=== PATIENT | female | born 2000 | race Caucasian/White ===

== ENCOUNTER 2020-11-04 18:23 | Emergency (ER) | payer SELFPAY ==
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
[2020-11-04] MEDS ORDERED: Lactated Ringers 1,000 ML IV ONE (19:37)
[2020-11-04] MEDS ORDERED: HYDROmorphone 0.5 MG/0.5 ML Syringe IVPUSH ONE (20:28)
[2020-11-04] MEDS ORDERED: Iopamidol 612 MG/ML 100 ML Bottle IVPUSH ONE (21:39)
[2020-11-04] MEDS ORDERED: Sodium Chloride 0.9% 100 ML IV SCH (21:45)
--- NOTE | 2020-11-05 08:27 | CT ---
CT abdomen and pelvis Technique: Multiple axial sections were obtained from above the dome of the diaphragm inferiorly through the pubic symphysis. Intravenous contrast was utilized. No oral contrast has been given. Delayed images were obtained through the abdomen and pelvis. Reconstructed coronal and sagittal images were obtained. Comparison: No prior CT abdomen or pelvis exam is available. Findings: Visualized lung bases show nothing acute. Liver contains no focal parenchymal abnormality. Spleen appears normal in size. Adrenal glands show no nodule. No discrete pancreatic abnormality is appreciated. Gallbladder contains no calcified gallstones. Kidneys show symmetric contrast enhancement. No hydronephrosis or mass is appreciated. Aorta shows no aneurysm. No retroperitoneal adenopathy or mesenteric abnormalities are appreciated. Appendix is felt to be visualized and appears to be normal. Bowel gas pattern appears within normal limits. No pelvic mass or adenopathy is seen. Delayed images show contrast excretion into both ureters and within the bladder. No free fluid or inflammatory change is appreciated. Small amount of air is noted within the bladder. Bone window settings were reviewed. 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 No acute osseous abnormality is otherwise appreciated. Impression: 1. 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 2. Small amount of air within the bladder. Please correlate if patient has been recently instrumented. 3. Nothing acute is otherwise seen on CT study of the abdomen and pelvis. Diagnostic code #2 I agree with preliminary report from [facility], finalized on 11/04/20, 10:52 PM [facility]
--- NOTE | 2020-11-05 08:45 | CR ---
Left tibia and fibula: AP and lateral views of the left tibia and fibula were obtained. Comparison: No previous study is available. No fracture or other bony abnormality is appreciated. Small lucent line is identified within the cortex of the medial talus which is most likely artifact. Impression: 1. Nothing acute is appreciated on 2 view left tibia and fibula study. Diagnostic code #2
--- NOTE | 2020-11-05 09:44 | CR ---
Left femur: AP and lateral views of the left femur were obtained. Comparison: No prior study. No fracture or other bony abnormality is appreciated. No soft tissue abnormality is appreciated. Impression: 1. Nothing acute is appreciated on two-view left femur study. Diagnostic code #1
--- NOTE | 2020-11-05 09:56 | CR ---
Chest: Frontal view of the chest was obtained. Comparison: No previous study is available. Heart size and mediastinum are normal. Lungs are clear with no acute parenchymal change. Bony structures are unremarkable. Contrast is seen within the collecting system from recent CT exam. Impression: 1. Nothing acute is seen on frontal chest x-ray. Diagnostic code #1
== END 2020-11-04 23:00 | disposition home or self-care (01) ==
LOC: JD.ED 18:23
DX: S87.82XA Crushing injury of left lower leg, initial encounter (principal); Z72.0 Tobacco use; W23.0XXA Caught, crushed, jammed, or pinched between moving objects, initial encounter
CPT/HCPCS: 36415; 71045; 73552; 73590; 74177; 80053; 84703; 85025; 96374; 99284; J1170; J7120; Q9967